=== PATIENT | male | born 1980 | race Caucasian/White ===

== ENCOUNTER 2017-09-07 15:01 | Emergency (ER) | payer SELFPAY ==
[~2017-09-07] VITALS: Ht 172.7 cm; Wt 120.0 kg
[~2017-09-07 15:01] MED LIST: DIFL500T PO; Z.0.NO CURRENT MEDS
[2017-09-07 15:05] VITALS: BP 196/93; PULSE 97; RESP 16; TEMP 98.5; O2SAT 99
[2017-09-07] MEDS ORDERED: BENZ1CAP51 PO (15:49)
[2017-09-07] MEDS ORDERED: ZITHTAB PO (15:49)
--- NOTE | 2017-09-07 15:50 | PD ---
HPI Chief Complaint: Cold / Flu Symptoms Time Seen by Provider: 15:41 Travel History International Travel<30 days: No Contact w/Intl Traveler<30days: No Traveled to known affect area: No History of Present Illness HPI 37-year-old male presents to the emergency department for evaluation of cold symptoms for one week. Patient reports Chest congestion, cough. No fevers or chills. He has no chronic medical problems and takes no prescribed medications. No exacerbating alleviating factors. 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 He had to call in sick today. Moderate severity. PFSH Past Medical History Asthma: Yes Diminished Hearing: No Social History Alcohol Use: Yes (occasional) Tobacco Use: No Substance Use: No Allergies-Medications (Allergen,Severity, Reaction): Coded Allergies: Sulfa (Sulfonamide Antibiotics) (Unverified Allergy, Severe, 09/07/17) chlorpheniramine (Unverified Allergy, Severe, 09/07/17) erythromycin base (Unverified Allergy, Severe, 09/07/17) hydrocodone (Unverified Allergy, Severe, 09/07/17) penicillin G (Unverified Allergy, Severe, 09/07/17) Reported Meds & Prescriptions Reported Meds & Active Scripts Active No Active Prescriptions or Reported Medications Review of Systems Except as stated in HPI: all other systems reviewed are Neg Physical Exam Narrative GENERAL: Well-nourished, well-developed male patient, afebrile. SKIN: Focused skin assessment warm/dry. HEAD: Normocephalic. Atraumatic. ENT: Mucosa pink and moist. No erythema or exudates. No uvular edema. No uvular , palatal, or tonsillar deviation. Airway patent. Nasal turbinates appear normal without nasal blood, purulent drainage or septal hematoma. Bilateral tympanic membranes are clear without erythema or perforation. EYES: No scleral icterus. No injection or drainage. NECK: Supple, trachea midline. No JVD or lymphadenopathy. CARDIOVASCULAR: Regular rate and rhythm without murmurs, gallops, or rubs. RESPIRATORY: Breath sounds equal bilaterally. No accessory muscle use. Lungs sounds are clear to auscultation. GASTROINTESTINAL: Abdomen soft, non-tender, nondistended. MUSCULOSKELETAL: No cyanosis, or edema. BACK: Nontender without obvious deformity. No CVA tenderness. Data Data Last Documented VS Vital Signs Date Time Temp Pulse Resp B/P (MAP) Pulse Ox O2 Delivery O2 Flow Rate FiO2 09/07/17 15:05 98.5 97 16 196/93 (127) 99 MDM Medical Decision Making Medical Screen Exam Complete: Yes Emergency Medical Condition: Yes Medical Record Reviewed: Yes Differential Diagnosis URI versus bronchitis versus pneumonia Narrative Course 37-year-old male presents to the emergency department for evaluation of cold symptoms for one week. Patient appears well on exam. Patient has multiple allergies to medications. He states he has had azithromycin in the past without difficulty. He'll be discharged prescription for azithromycin, Denis Lama. He is to follow-up with his primary care physician. He is return here for any acute worsening of symptoms. The patient was discharged in stable condition with instructions, including return instructions and follow up instructions. Diagnosis Primary Impression: Upper respiratory infection Qualified Codes: J06.9 - Acute upper respiratory infection, unspecified Referrals: Primary Care Physician call for appointment Patient Instructions: General Instructions, Upper Respiratory Infection (ED) Departure Forms: Tests/Procedures, Work Release Enter return to work date: Sep 09, 2017 Additional Instructions: Take antibiotic as directed until gone. Take benzonatate capsules as directed as needed for cough. Follow-up with your primary care physician. Return to the emergency department for any acute worsening of symptoms. Med/Other Pt SpecificInfo: Prescription(s) given Scripts Benzonatate (Benzonatate) 200 Mg Cap 200 MG PO TID Y for COUGH, #21 CAP 0 Refills Prov: Catina Pearson 09/07/17 Azithromycin (Zithromax Z-David) 250 Mg Dspk 250 MG PO DIRECTED for Infection, #1 DSPK 0 Refills 500 MG (2 tabs) day 1, then 1 tab days 2-5. Prov: Catina Pearson 09/07/17 Disposition: 01 DISCHARGE HOME Condition: Stable Catina Pearson Sep 07, 2017 15:50
== END 2017-09-07 16:02 | disposition home or self-care (01) ==
LOC: PHEFT 15:01
DX: J06.9 Acute upper respiratory infection, unspecified (principal); J45.909 Unspecified asthma, uncomplicated; Z88.1 Allergy status to other antibiotic agents; Z88.0 Allergy status to penicillin; Z88.2 Allergy status to sulfonamides; Z88.5 Allergy status to narcotic agent
CPT/HCPCS: 99283